=== PATIENT | female | born 1975 | race American Indian/Alaskan Native ===

== ENCOUNTER 2017-05-19 00:51 | Emergency (ER) | payer OTHER ==
[2017-05-19 01:05] VITALS: BP 154/88; PULSE 112; RESP 16; TEMP 99.1; O2SAT 98
--- NOTE | 2017-05-19 01:40 | ED PDOC ---
HPI: General Adult Time Seen by Provider: 05/19/17 01:15 Chief Complaint (Nursing): GI Problem Chief Complaint (Provider): constipation History Per: Patient History/Exam Limitations: no limitations Onset/Duration Of Symptoms: Days (1 week) Additional History Per: Patient Additional Complaint(s): 42 y/o female presents with constipation x 1 week. Patient states symptoms started after returning home from [place] the day prior, where her bowel movements were normal (once daily). Patient seen at [facility] two days ago and prescribed stool softener; states she took it for 24 hours without bowel movement so called them back and was advised to buy magnesium citrate, and enema. Patient states she took both magnesium citrate and fleet enema at 21:00 last night and still has not had bowel movement. Associated bloating, abdominal cramping. Denies fever, nausea/vomiting, dysuria, hematuria. Patient passing gas rectally. Past Medical History Reviewed: Historical Data, Nursing Documentation, Vital Signs Vital Signs: Last Vital Signs Temp 99.1 F 05/19/17 01:02 Pulse 112 H 05/19/17 01:02 Resp 16 05/19/17 01:02 BP 154/88 H 05/19/17 01:02 Pulse Ox 98 05/19/17 06:44 - Medical History PMH: No Chronic Diseases - Surgical History Surgical History: No Surg Hx - Family History Family History: States: No Known Family Hx - Home Medications Home Medications: Ambulatory Orders Medication Instructions Recorded Polyethylene Glycol 3350 [Miralax] 17 gm PO DAILY PRN #5 powd.pack 05/19/17 - Allergies Allergies/Adverse Reactions: Allergies Allergy/AdvReac Type Severity Reaction Status Date / Time No Known Allergies Allergy Verified 05/19/17 01:05 Review of Systems ROS Statement: Except As Marked, All Systems Reviewed And Found Negative Gastrointestinal: Positive for: Abdominal Pain, Constipation Physical Exam - Reviewed Nursing Documentation Reviewed: Yes Vital Signs Reviewed: Yes - Physical Exam Appears: Positive for: Well, Non-toxic, No Acute Distress Head Exam: Positive for: ATRAUMATIC, NORMAL INSPECTION, NORMOCEPHALIC Skin: Positive for: Normal Color Eye Exam: Positive for: Normal appearance ENT: Positive for: Normal ENT Inspection Cardiovascular/Chest: Positive for: Regular Rate, Rhythm Respiratory: Positive for: Normal Breath Sounds Gastrointestinal/Abdominal: Positive for: Bowel Sounds, Tenderness (lower abdominal discomfort), Distended. Negative for: Rebound Back: Positive for: Normal Inspection Extremity: Positive for: Normal ROM Neurologic/Psych: Positive for: Alert, Oriented - Laboratory Results Result Diagrams: 05/19/17 03:55 05/19/17 03:55 - ECG O2 Sat by Pulse Oximetry: 98 - Progress ED Course And Treament: obstructive series labs, CT abd/pelvis ordered for air-fluid levels noted on xray EXAM: CT Abdomen and Pelvis With Intravenous Contrast CLINICAL HISTORY: 42 years old, female; Pain; Abdominal pain; Generalized; Additional info: Constipation, abd pain TECHNIQUE: Axial computed tomography images of the abdomen and pelvis with intravenous contrast. All CT scans at this facility use one or more dose reduction techniques, viz.: automated exposure control; ma/kV adjustment per patient size (including targeted exams where dose is matched to indication; i.e. head); or iterative reconstruction technique. Coronal and sagittal reformatted images were created and reviewed. CONTRAST: 95 mL of omnipaque 300 administered intravenously. COMPARISON: No relevant prior studies available. FINDINGS: Lower thorax: There is minimal bibasilar atelectasis. ABDOMEN: Liver: The liver is unremarkable in appearance. Gallbladder and bile ducts: The gallbladder is normal. No calcified stones. No ductal dilation. Pancreas: The pancreas is normal. Spleen: Unremarkable. Adrenals: The adrenal glands are normal. Kidneys and ureters: The kidneys are normal. Stomach and bowel: Abundant stool in the left colon. Air-fluid levels in the proximal colon. Appendix: There is a 7-9 mm fluid filled tubular structure extending from the expected location of the cecum superiorly and medially toward the aortic bifurcation. PELVIS: Bladder: The bladder is normal. Reproductive: There appears to be a 3 cm posterior uterine fibroid. ABDOMEN and PELVIS: Intraperitoneal space: There is a small amount of free pelvic fluid present. No free air. Bones/joints: No acute fracture. No dislocation. Soft tissues: Unremarkable. Vasculature: Unremarkable. Lymph nodes: Unremarkable. No enlarged lymph nodes. IMPRESSION: There is a 7-9 mm fluid filled tubular structure extending from the expected location of the cecum superiorly and medially toward the aortic bifurcation. This may represent an inflamed appendix. Please correlate with clinical and lab data. Patient with generalized abdomianl discomfort, afebrile, normal WBC, no nausea/ vomiting. Patient educated on CT findings, given strict return precautions for any of the above named signs/symptoms. Soap suds enema ordered Disposition - Clinical Impression Clinical Impression: Constipation - Patient ED Disposition Is Patient to be Admitted: No - Disposition Disposition: Routine/Home Disposition Time: 06:09 Condition: STABLE Prescriptions: Polyethylene Glycol 3350 [Miralax] 17 gm PO DAILY PRN #5 powd.pack PRN Reason: Constipation Instructions: Constipation (ED), High Fiber Diet (ED)
[2017-05-19 03:57] LABS: BASO % 0.4 % (0.0-2.0); EOS # 0.1 K/uL (0.0-0.7); EOS % 1.1 % (0.0-4.0); HEMATOCRIT 36.4 % (34.0-47.0); LYMPH # 1.5 K/uL (1.0-4.3); LYMPH % 19.2 % (20.0-40.0); MEAN CORPUSCULAR HEMOGLOBIN 28.4 pg (27.0-31.0); MEAN CORPUSCULAR HGB CONC 33.3 g/dL (33.0-37.0); MEAN PLATELET VOLUME 8.2 fl (7.2-11.7); MONO # 0.8 K/uL (0.0-0.8); MONO % 10.5 % (0.0-10.0); NEUT # 5.3 K/uL (1.8-7.0); NEUT % 68.8 % (50.0-75.0); NRBC % 0.1 % (0.0-0.0); RED CELL DISTRIBUTION WIDTH 13.3 % (11.5-14.5); WHITE BLOOD COUNT 7.6 K/uL (4.8-10.8)
[2017-05-19 04:13] LABS: BLOOD UREA NITROGEN 5 mg/dl (7-17); CALCIUM 8.6 mg/dL (8.4-10.2); CARBON DIOXIDE 27 mmol/L (22-30); CHLORIDE 106 mmol/L (98-107); GFR AFRICAN-AMERICAN > 60; GLUCOSE,RANDOM 103 mg/dL (65-105); POTASSIUM 4.1 MMOL/L (3.6-5.0); SODIUM 140 mmol/l (132-148); TOTAL PROTEIN 7.6 G/DL (6.3-8.2)
[2017-05-19 04:14] LABS: ALB/GLOB RATIO 1.1 (1.0-2.1); ALKALINE PHOSPHATASE 91 U/L (38-126); ALT/SGPT 30 U/L (9-52); AST/SGOT 35 U/L (14-36); BILIRUBIN,TOTAL 0.3 mg/dl (0.2-1.3)
[2017-05-19] MEDS ORDERED: Iohexol 300 100 ML IJ ONE ×3 (04:52→05:13)
[2017-05-19] MEDS ORDERED: Sodium Chloride 0.9% 50 ML IV ONE ×2 (04:52→05:14)
--- NOTE | 2017-05-19 06:44 | ED PDOC ---
- Laboratory Results Result Diagrams: 05/19/17 03:55 05/19/17 03:55 - ECG O2 Sat by Pulse Oximetry: 98 Medical Decision Making Medical Decision Making: Patient s/o to provider by Gavin Franco at 6AM pending enema and re-evaluation Patient s/o at 7AM to Dr Godoy; pending enema and re-evaluation Disposition - Clinical Impression Clinical Impression: Constipation - POA Present On Arrival: None - Disposition Disposition: Transfer of Care Disposition Time: 07:00 Condition: STABLE Prescriptions: Polyethylene Glycol 3350 [Miralax] 17 gm PO DAILY PRN #5 powd.pack PRN Reason: Constipation Instructions: Constipation (ED), High Fiber Diet (ED) Patient Signed Over To: Mariama Godoy
--- NOTE | 2017-05-19 09:52 | CT ---
PROCEDURE: CT abdomen pelvis dated 05/19/2017 HISTORY: Constipation. Abdominal pain. COMPARISON: None. TECHNIQUE: Contiguous axial images of the abdomen and pelvis performed of following intravenous injection of approximately 95 cc Omnipaque 300 contrast material. . Coronal and Sagittal reformats generated. Radiation dose: Total exam DLP = 1454.52 mGy-cm. This CT exam was performed using one or more of the following dose reduction techniques: Automated exposure control, adjustment of the mA and/or kV according to patient size, and/or use of iterative reconstruction technique. FINDINGS: LOWER THORAX: . Mild bibasilar atelectasis. No effusion or basilar pneumothorax. PE appears to be tiny hiatal hernia with slight wall thickening of the distal esophagus that is likely due to protrusion of gastric mucosa. Possibility of esophagitis not completely excluded. . Heart size is within range of normal. No significant pericardial effusion. LIVER: Liver exhibits normal size measuring nearly 14 cm in CC dimension. Mild diffuse fatty hepatic infiltration. No obvious hepatic masses or collections. Portal and splenic veins are opacified GALLBLADDER AND BILE DUCTS: Gallbladder is physiologically distended. No evidence of intraluminal gallbladder calculi. PANCREAS: . Pancreatic duct is visible lobe does not appear significantly dilated. No obvious pancreatic mass, collection or calcification. SPLEEN: The spleen exhibits normal size and attenuation pattern as well without mass collection or calcification. ADRENALS: No adrenal lesions. KIDNEYS AND URETERS: Kidneys demonstrate symmetric nephrograms. No evidence of nephrolithiasis or hydronephrosis. BLADDER: Urinary bladder is physiologically distended. No evidence of intraluminal urinary bladder calculi. REPRODUCTIVE: Small posterior fibroid measuring 3.3 x 2.8 cm. Uterus otherwise appears unremarkable APPENDIX: No appendix is best seen on coronal image number [id number] and axial image number [id number]. The appendix is mildly dilated measuring up to 7.6 mm of. The wall of the appendix is also prominent and exhibits mild uniform enhancement. Findings suggest early acute appendicitis however clinical correlation with history physical exam and laboratory values recommended. BOWEL: Evaluation of the bowel is limited due to the lack of oral contrast material. The stomach is incompletely distended which presumably accounts for slight thick-walled appearance. Visualized loops of small bowel exhibit relatively normal contour and caliber although contain moderate amount of fluid. . No evidence of acute mechanical small bowel obstruction. . There is also on moderate amount of liquid stool in the right colon extending to the distal transverse colon region. There is moderate amount of desiccated stool within the descending colon and rectosigmoid. Findings suggest mild constipation. PERITONEUM: There appears to be a small amount of free fluid within the left aspect of the pelvis. No gross free intraperitoneal air LYMPH NODES: Unremarkable. No enlarged lymph nodes. VASCULATURE: Unremarkable. No aortic aneurysm. BONES: No fracture or destructive lesion. OTHER FINDINGS: None. IMPRESSION: Findings suggest mild early acute appendicitis however correlation with history, physical exam and laboratory values recommended. . Small amount of free fluid left aspect of the pelvis suspected. . Findings suggest left-sided colonic constipation as above. Suspect small uterine fibroid. Preliminary report provided by overnight radiology service
--- NOTE | 2017-05-19 14:56 | RAD ---
PROCEDURE: Radiographs of the chest and abdomen (obstructive series) HISTORY: constipation COMPARISON: No prior. TECHNIQUE: AP radiograph of the chest, with upright and supine radiographs of the abdomen. FINDINGS: CHEST: Lungs: Clear. Cardiovascular: Normal size heart. No pulmonary vascular congestion. Pleura: No pleural fluid. No pneumothorax. Other findings: None. ABDOMEN AND PELVIS: Bowel: Unremarkable bowel gas pattern. No evidence of mechanical obstruction. Free air: None. Bones: Unremarkable. Other findings: None. IMPRESSION: Unremarkable radiographs of chest and abdomen. No evidence of mechanical bowel obstruction.
== END 2017-05-19 07:02 | disposition home or self-care (01) ==
LOC: H.ER 00:51
DX: K59.00 Constipation, unspecified (principal)
CPT/HCPCS: 74022; 74177; 80053; 81025; 85025; 99283; Q9967